=== PATIENT | female | born 1945 | race Caucasian/White ===

== ENCOUNTER 2022-10-11 14:03 | Emergency (ER) | payer MEDICARE, OTHER ==
[~2022-10-11] VITALS: Ht 167.6 cm; Wt 81.7 kg
[2022-10-11] MEDS ORDERED: FOSAMAX70 MG PO (14:13)
[2022-10-11] MEDS ORDERED: PEPCID20 MG PO (14:13)
[2022-10-11] MEDS ORDERED: METOPROLOL SUCC25 MG PO (16:09)
--- NOTE | 2022-10-11 19:04 | EKG ---
[facility] [address] [facility] [place] [address] Signed Normal sinus rhythm Possible Left atrial enlargement Borderline ECG No previous ECGs available Confirmed by Scooby Tyson MD () on 10/11/2022 7:04:12 PM Electronically Signed By: SCOOBY TYSON MD 10/11/22 190 PATIENT NAME: SATISH NEWSMOE HIRA Electrocardiogram DATE OF : 49 PHYSICIAN: SCOOBY TYSON MD REPORT #: [id number] REPORT IS CONFIDENTIAL AND NOT TO BE RELEASED WITHOUT AUTHORIZATION
--- NOTE | 2022-10-11 19:05 | EKG ---
[facility] [address] [facility] [place] [address] Signed Normal sinus rhythm Possible Left atrial enlargement Borderline ECG When compared with ECG of 11-OCT-2022 14:04, T wave amplitude has decreased in Lateral leads Confirmed by Scooby Tyson MD () on 10/11/2022 7:05:19 PM Electronically Signed By: SCOOBY TYSON MD 10/11/22 1905 PATIENT NAME: DAVID NEWSOMERAFAEL INIGUEZ Electrocardiogram DATE OF : 49 PHYSICIAN: SCOOBY TYSON MD REPORT #: [id number] REPORT IS CONFIDENTIAL AND NOT TO BE RELEASED WITHOUT AUTHORIZATION
== END 2022-10-11 16:54 | disposition home or self-care (01) ==
LOC: ED 14:03
DX: I10 Essential (primary) hypertension (principal); R07.89 Other chest pain; K21.9 Gastro-esophageal reflux disease without esophagitis; Z79.899 Other long term (current) drug therapy
CPT/HCPCS: 36415; 71045; 71275; 74174; 80053; 83690; 83735; 84484; 85025; 85379; 93005; 93010; 96360; 99285-25; J7030; Q9967; U0003

== ENCOUNTER 2023-08-23 12:32 | Emergency (ER) | payer MEDICARE, OTHER ==
[~2023-08-23] VITALS: Ht 167.6 cm; Wt 86.4 kg
[~2023-08-23 12:32] MED LIST: AMLODIPINE BES2.5 MG PO; ATORVASTATIN CA40 MG PO; FOSAMAX70 MG PO; LISINOPRIL10 MG PO; METOPROLOL SUCC25 MG PO; NITROGLYCERIN0.4 MG SL; PEPCID20 MG PO; RANOLAZINE ER500 MG PO
[2023-08-23] MEDS ORDERED: VAZALORE81 MG PO (12:51)
[2023-08-23] MEDS ORDERED: LOSARTAN POTASS50 MG PO (12:52)
[2023-08-23 13:06] LABS: BASOPHILS 0.7 % (0-2); EOSINOPHILS 2.8 % (0-6); HEMATOCRIT 39.8 % (35.0-50.0); HEMOGLOBIN 13.5 g/dL (12.0-18.0); LYMPHOCYTES 27.9 % (24-44); MCH 31.1 (27-36); MCV 91.7 fl (81-99); NEUTROPHILS 56.6 % (39-80); PLATELET COUNT 171 K/uL (140-440); RBC 4.34 M/ul (4.3-5.7); RDW 13.4 (10.5-15.0)
[2023-08-23 13:17] LABS: ALBUMIN 3.6 g/dL (3.4-5.0); ALBUMIN/GLOBULIN RATIO 0.92 (1.1-2.4); ANION GAP 10.8 (7-21); BILIRUBIN, TOTAL 0.5 ng/dL (0.2-1.0); BUN/CREATININE RATIO 18.04 (6.0-28.6); CALCIUM 9.7 mg/dL (8.5-10.1); CREATININE, SERUM 1.33 mg/dL (0.55-1.02); POTASSIUM 3.8 mmol/L (3.5-5.1); PROTEIN, TOTAL 7.5 g/dL (6.4-8.2)
[2023-08-23 15:31] VITALS: BP 134/82
--- NOTE | 2023-08-23 22:52 | EKG ---
[facility] [address] [place] [address] Signed Sinus rhythm with premature atrial complexes Otherwise normal ECG When compared with ECG of 28-MAR-2023 15:40, premature atrial complexes are now present Questionable change in QRS axis Confirmed by Scooby Tyson MD () on 08/23/2023 10:52:13 PM Electronically Signed By: SCOOBY TYSON MD 08/23/23 2252 PATIENT NAME: SATISH NEWSOME HIRA Electrocardiogram DATE OF : 49 PHYSICIAN: SCOOBY TYSON MD REPORT #: [id number] REPORT IS CONFIDENTIAL AND NOT TO BE RELEASED WITHOUT AUTHORIZATION
== END 2023-08-23 15:31 | disposition home or self-care (01) ==
LOC: ED 12:32
PROVIDERS: Emergency Medicine
DX: K21.9 Gastro-esophageal reflux disease without esophagitis (principal); M81.0 Age-related osteoporosis without current pathological fracture; E78.00 Pure hypercholesterolemia, unspecified; I10 Essential (primary) hypertension; I25.2 Old myocardial infarction; Z79.82 Long term (current) use of aspirin; Z79.899 Other long term (current) drug therapy
CPT/HCPCS: 36415; 71045; 80053; 83735; 84484; 85025; 93005; 93010; 99285-25

== ENCOUNTER 2025-06-09 15:01 | Emergency (ER) | payer OTHER ==
[~2025-06-09] VITALS: Ht 167.6 cm; Wt 88.0 kg
--- OUTSIDE RECORDS SUMMARY | ~2025-06-09 | XMS | Continuity of Care Document ---
Demographics + + + | Address | [address] | | | [place] [address] | + + + | Preferred Language | Unknown | + + + | Marital Status | | + + + | Sikh Affiliation | Unknown | + + + | Race | White | + + + | Ethnic Group | Not or | + + + Author + + + | Author | [facility] | + + + | Organization | [facility] | + + + | Address | [address] | | | [place] [address] | + + + | Phone | | + + + Care Team Providers + + + + | Care [employer] Ceramist Name | Role | Phone | + + + + Unavailable | Unavailable | + + + + Allergies No information. Encounters No information. Functional Status No information. Immunizations No information. Medications + + + + | date | description | facility | + + + + | (no date) | [place]OTIDINE | [facility] [place] | | | | [facility] | + + + + | (no date) | NITROGLYCERIN | [facility] [place] | | | | [facility] | + + + + | (no date) | [place] [facility] [place] [facility] | | | | [facility] | + + + + | (no date) | AMLODIPINE BESYLATE | [facility] [place] [facility] | | | | [facility] | + + + + | (no date) | LISINOPRIL [place] [facility] [place] [facility] | | | | [facility] | + + + + | (no date) | Ranolazine | [facility] [place] [facility] | | | | [facility] | + + + + | (no date) | ATORVASTATIN CALCIUM | [facility] [place] [facility] | | | | [facility] | + + + + | (no date) | ALENDRONATE SODIUM | [facility] [place] | | | | [facility] | + + + + | (no date) | LOSARTAN POTASSIUM | [facility] [place] | | | | [facility] | + + + + Problems No information. Procedures No information. Results/Labs No information. Social History + + + + | date | description | facility | + + + + | (no date) | Unknown if ever smoked | [facility] | | | | [facility] | + + + + Vital Signs No information."
[~2025-06-09 15:01] MED LIST changes: +LOSARTAN POTASS50 MG PO; +VAZALORE81 MG PO
--- OUTSIDE RECORDS SUMMARY | 2025-06-09 15:03 | XMS ---
PreManage Notification: SATISH NEWSOME Security Selling Manager Events No recent Security Events currently on file CRITERIA MET - [facility] PROVIDERS PENG VALENZUELA [facility] Current PHONE: Unknown RAULITO WISEMAN Internal Medicine Current PHONE: Unknown Sayda has no Care Guidelines for this patient. Hung VISIT COUNT (12 MO.) Aleida Esparza TOTAL 1 NOTE: Visits indicate total known visits. ED/UCC VISIT TRACKING (12 MO.) 06/09/2025 15:02 [facility] TYPE: Emergency COMPLAINT: - CHEST PAIN INPATIENT VISIT TRACKING (12 MO.) No inpatient visits to display in this time frame [id number]
[2025-06-09] MEDS ORDERED: ASPIRIN 81 MG CHEW PO ONE (15:15)
[2025-06-09] MEDS ORDERED: NITROGLYCERIN 0.4 MG SUBL SL PRN (15:15)
[2025-06-09 15:26] LABS: BASOPHILS 0.8 % (0.1-1.2); EOSINOPHILS 3.6 % (0.7-5.8); LYMPHOCYTES 21.3 % (19.3-51.7); MCH 29.4 PG (25.6-32.2); MCHC 32.3 g/dL (32.2-35.5); MCV 91.0 fL (79.4-94.8); MONOCYTES 14.8 % (4.7-12.5); NEUTROPHILS 59.3 % (34.0-71.1); RBC 3.98 M/uL (3.93-5.22)
[2025-06-09 15:44] LABS: ALT (SGPT) 21.0 U/L (14-59); AST (SGOT) 16.0 U/L (15-37); GLOMERULAR FILTRATION RATE,EST 53.0 mL/min (>60); PROTEIN, TOTAL 6.9 g/dL (6.4-8.2); UREA NITROGEN 22.0 mg/dL (7-18)
[2025-06-09] MEDS ORDERED: ASPIRIN 325 MG TAB PO ONE (16:30)
[2025-06-09] MEDS ORDERED: methylPREDNISolone 4 MG HOME.PACK PO ONE (21:15)
[2025-06-09] MEDS ORDERED: AZITHROMYCIN 250 MG HOME.PACK PO ONE (21:15)
[2025-06-09] MEDS ORDERED: CEFDINIR 300 MG HOME.PACK PO ONE (21:15)
[2025-06-09] MEDS ORDERED: CEFDINIR300 MG PO (21:15)
[2025-06-09] MEDS ORDERED: ALBUTEROL SULFATE 8 GM HOME.PACK INH ONE (21:15)
[2025-06-09 21:51] VITALS: BP 154/102
--- NOTE | 2025-06-09 22:01 | EKG ---
[facility] [address] [facility] [place] [address] Signed Normal sinus rhythm Possible Left atrial enlargement Borderline ECG When compared with ECG of 23-AUG-2023 12:35, Nonspecific T wave abnormality in Anterior leads Confirmed by Scooby Tyson MD () on 06/09/2025 10:00:56 PM Electronically Signed By: SCOOBY TYSON MD 06/09/252200 PATIENT NAME: JERODSATISH INIGUEZ Electrocardiogram DATE OF : 49 PHYSICIAN: SCOOBY TYSON MD REPORT #: [id number] REPORT IS CONFIDENTIAL AND NOT TO BE RELEASED WITHOUT AUTHORIZATION
== END 2025-06-09 21:55 | disposition home or self-care (01) ==
LOC: ED 15:01
PROVIDERS: Emergency Medicine
DX: J18.9 Pneumonia, unspecified organism (principal); R07.2 Precordial pain; K21.9 Gastro-esophageal reflux disease without esophagitis; Z79.82 Long term (current) use of aspirin; Z79.899 Other long term (current) drug therapy
CPT/HCPCS: 36415; 71045; 71260; 80053; 83690; 83735; 84484; 85025; 85379; 93005; 93010; 94640; 99285-25; A9270; Q9967